=== PATIENT | female | born 1965 | race Caucasian/White ===

== ENCOUNTER 2020-02-06 12:32 | Emergency (ER) | payer BC, SELFPAY ==
[2020-02-06] MEDS ORDERED: Iopamidol 370 76% 100 ML VIAL ONE (12:59)
[2020-02-06] MEDS ORDERED: metroNIDAZOLE 500 MG/100 ML BAG ONE (13:01)
[2020-02-06] MEDS ORDERED: Ondansetron PF 4 MG/2 ML Vial ONE (13:01)
[2020-02-06] MEDS ORDERED: Pantoprazole 40 MG VIAL ONE (13:05)
[2020-02-06 13:08] LABS: Hemoglobin 9.2 g/dL (12.0-16.0); Mean Corpuscular HGB CONC 28.5 g/dL (32.0-36.0); Mean Corpuscular Volume 70.1 fL (78.0-98.0); Mean Platelet Volume 7.4 fL (7.4-10.4); Platelet Count 429 thou/uL (130-400); White Blood Cell (WBC) Count 14.6 thou/uL (4.8-10.8)
[2020-02-06 13:19] LABS: ALT (SGPT) 13 U/L (8-55); AST (SGOT) 15 U/L (5-34); Albumin 3.8 g/dL (3.5-5.0); Alkaline Phosphatase 77 U/L (40-110); Anion Gap 22 mmol/L (10-20); BUN (Urea Nitrogen) 16 mg/dL (9.8-20.1); Bilirubin, Total 0.3 mg/dL (0.2-1.2); Calc. Creatinine Clearance 0 mL/min (70-130); Calcium 11.7 mg/dL (7.8-10.44); Carbon Dioxide 20 mmol/L (22-29); Chloride 95 mmol/L (98-107); Globulin 4.6 g/dL (2.4-3.5); Glucose 130 mg/dL (70-105); Potassium 3.9 mmol/L (3.5-5.1); Protein, Total 8.4 g/dL (6.0-8.3); Sodium 133 mmol/L (136-145)
[2020-02-06 13:20] LABS: PTT 37.3 sec (22.9-36.1); Prothrombin Time 13.4 sec (12.0-14.7)
[2020-02-06 13:25] LABS: Alcohol Less than 10 mg/dL (Less than 10); Lipase 5 U/L (8-78)
[2020-02-06] MEDS ORDERED: Morphine 4 MG/ML VIAL ONE (13:34)
[2020-02-06 13:46] LABS: Bilirubin Small (Negative); Blood, Urine Negative (Negative); Clarity Cloudy (Clear); Glucose, Urine (Dipstick) Negative (Negative); Ketone, Urine Negative (Negative); Leukocyte Trace (Negative); Nitrite Negative (Negative); Protein, Urine (Dipstick) 30 mg/dL (Neg-Trace); Urobilinogen 0.2 mg/dL (Less than 2)
[2020-02-06 13:55] LABS: Bacteria/HPF 4+ HPF (None Seen); RBC/HPF None Seen HPF (0-3); Squamous Epithelial 0-3 HPF (0-3); WBC/HPF 0-3 HPF (0-3)
[2020-02-06 14:07] LABS: Band 56 % (5-11); Basophilic Stippling SLIGHT = 1-2 cells (100X) (None Seen); Elliptocytes SLIGHT = 2-5 cells (100X) (0-1/hpf); Hypochromia MODERATE=16-30 cells (100X) (0-5/hpf); Large Platelets SLIGHT; Lymphocytes 2 % (21-51); MDiff Complete? YES; Macrocytosis MODERATE=16-30 cells (100X) (0-5/hpf); Microcytosis MODERATE=15-30 cells (100X) (0-5/hpf); Monocytes 7 % (0-10); Neutrophil 35 % (42-75); Reflex for Review?? NO; Target Cells SLIGHT = 2-5 cells (100X) (0-1/hpf)
--- NOTE | 2020-02-06 15:00 | CT ---
CT ABDOMEN AND PELVIS WITH CONTRAST: Date: 02-06-[address] of the abdomen and pelvis was performed for evaluation of epigastric pain. FINDINGS: Free air is seen in the upper abdomen, mostly in the left upper quadrant, though there is some near t he hilum of the liver. Free fluid is seen around the liver, pockets along the left and right flank (p articularly left). Quite a few pockets are seen down in the pelvis. All of these findings point to a perforated viscus. The stomach is fluid filled. Beginning at the distal stomach and duodenal region, there is prominent thickening of the urban, however, most of the small bowel is quite thick throughout the majority of the extent. Only the areas around the terminal ileum become a little more normal in thickness. I woul d wonder about some generalized thickening of the left colon and sigmoid colon. The lung bases are clear. The liver, spleen, pancreas, gallbladder, and kidneys showed no acute findi ngs. There is a 1.7 cm fat density mass in the right adrenal gland that is probably an adenoma or lip georgie. The aorta shows calcification but no aneurysm. CT of the pelvis was mainly remarkable for the free fluid present. IMPRESSION: 1. Evidence of a perforated viscus consisting of free air and free fluid. Because more of the fr ee air is seen in the upper abdomen, the site of perforation is presumed to be more likely in this ar ea. 2. Very prominent thickening of the duodenum, but the entire small bowel is thick until almost t he terminal ileum. There is some questionable mild thickening of the left colon and sigmoid colon. 3. 1.7 cm right adrenal adenoma or lipoma. Of no current concern. Findings discussed with Dr. Wiley at 1410 on 02-06-2020. POS: HOME
== END 2020-02-06 15:04 | disposition short-term general hospital (02) ==
LOC: BURERS 12:32
DX: A41.9 Sepsis, unspecified organism (principal); K25.5 Chronic or unspecified gastric ulcer with perforation; I10 Essential (primary) hypertension; E87.1 Hypo-osmolality and hyponatremia; J44.9 Chronic obstructive pulmonary disease, unspecified; F17.210 Nicotine dependence, cigarettes, uncomplicated; Z86.73 Personal history of transient ischemic attack (TIA), and cerebral infarction without residual deficits
CPT/HCPCS: 51701; 74177; 80053; 80307; 81003; 81015; 83605; 83690; 84484; 85025; 85610; 85730; 86850; 86900; 86901; 87040; 87077; 87086; 87186; 96365; 96375; C9113; J1956; J2270; J2405; Q9967